=== PATIENT | female | born 1955 | race Caucasian/White ===

== ENCOUNTER 2021-08-12 09:37 | Emergency (ER) | payer MEDICARE, MEDICAID ==
[~2021-08-12] VITALS: Ht 149.9 cm; Wt 71.0 kg
[~2021-08-12 09:37] MED LIST: AMLO5TAB4 PO; HYDR25TA PO; LORA1TAB PO; OMEP20TA2 PO
[2021-08-12] MEDS ORDERED: SODIUM CHLORIDE 0.9% 1,000 ML IV ONE (10:15)
[2021-08-12 11:00] LABS: BASOPHILS % 0.7 % (0.0-2.0); EOSINOPHILS % 3.1 % (0.0-5.0); HEMATOCRIT. 41.8 % (36.0-48.0); HEMOGLOBIN. 14.6 g/dL (12.0-16.0); LYMPHOCYTES % 35.1 % (20.0-50.0); MEAN CORPUSCULAR HEMOGLOBIN 30.9 pg (28.0-32.0); MEAN CORPUSCULAR VOLUME 88.3 fL (81.0-99.0); MEAN PLATELET VOLUME 7.2 fl (7.4-10.4); MONOCYTES % 8.2 % (2.0-8.0); NEUTROPHILS % 52.9 % (40.0-76.0); PLATELET 241 x1000/uL (130-400); RED BLOOD CELL COUNT 4.73 mill/uL (4.2-5.4); RED CELL DISTRIBUTION WIDTH 13.2 % (11.6-14.6)
[2021-08-12 11:06] LABS: CHLORIDE 106 mEq/L (98-107)
[2021-08-12 11:11] LABS: PROTHROMBIN TIME 10.5 sec (9.6-11.0)
[2021-08-12] MEDS ORDERED: ONDANSETRON HCL 4MG/2ML INJ IV ONE (11:15)
[2021-08-12] MEDS ORDERED: MECLIZINE 25MG TABLET PO ONE (11:15)
[2021-08-12 12:47] LABS: CLARITY URINE CLEAR (CLEAR); COLOR URINE YELLOW (YELLOW); KETONES URINE NEGATIVE (NEGATIVE); LEUKOCYTE ESTERASE URINE NEGATIVE (NEGATIVE); NITRITE URINE NEGATIVE (NEGATIVE); OCCULT BLOOD URINE NEGATIVE (NEGATIVE); PROTEIN URINE NEGATIVE (NEGATIVE); SPECIFIC GRAVITY URINE 1.007 (1.005-1.030); UROBILINOGEN URINE 0.2 E.U./dL (0.2-1.0)
[2021-08-12] MEDS ORDERED: ONDA4TAB5 MT (13:46)
[2021-08-12] MEDS ORDERED: DICY20TA11 MT (13:46)
[2021-08-12] MEDS ORDERED: MECL-159 MT (13:46)
[2021-08-12 14:00] VITALS: BP 128/52
[2021-08-12] MEDS ORDERED: IOHEXOL-300 100 ML BOTTLE ONE (14:16)
== END 2021-08-12 14:21 | disposition home or self-care (01) ==
LOC: ER 09:53
DX: R42 Dizziness and giddiness (principal); R19.7 Diarrhea, unspecified; R10.30 Lower abdominal pain, unspecified; J44.9 Chronic obstructive pulmonary disease, unspecified; I10 Essential (primary) hypertension; Z98.890 Other specified postprocedural states
CPT/HCPCS: 36415; 71045; 74177; 80053; 81003; 83690; 85025; 85610; 86850; 86900; 86901; 93005; 96361; 96374; 99285; J2405; J7030; J8597; Q9967

== ENCOUNTER 2021-09-01 20:25 | Emergency (ER) | payer MEDICARE, MEDICAID ==
[~2021-09-01] VITALS: Ht 149.9 cm; Wt 69.0 kg
[~2021-09-01 20:25] MED LIST changes: +DICY20TA11 MT; +MECL-159 MT; +ONDA4TAB5 MT
[2021-09-02] MEDS ORDERED: ACET-2708 MT (00:41)
[2021-09-02 00:53] VITALS: BP 167/83
== END 2021-09-02 00:56 | disposition home or self-care (01) ==
LOC: ER 20:25
DX: H66.91 Otitis media, unspecified, right ear (principal); J44.9 Chronic obstructive pulmonary disease, unspecified; I10 Essential (primary) hypertension; Z90.49 Acquired absence of other specified parts of digestive tract; Z79.899 Other long term (current) drug therapy
CPT/HCPCS: 99281

== ENCOUNTER 2023-10-24 16:20 | Emergency (ER) | payer MEDICARE, MEDICAID ==
[~2023-10-24] VITALS: Ht 162.6 cm; Wt 86.0 kg
[~2023-10-24 16:20] MED LIST changes: +ACET-2708 MT; -DICY20TA11 MT; +DICY20TA2 MT; -MECL-159 MT; +MECL-299 MT; -OMEP20TA2 PO; +OMEP20TA23 PO
[2023-10-24 16:43] VITALS: BP 117/81; PULSE 99; RESP 20; TEMP 99.1; O2SAT 95
[2023-10-24] MEDS ORDERED: AZIT500T8 MT (20:45)
== END 2023-10-24 19:48 | disposition home or self-care (01) ==
LOC: ER 16:20
DX: J44.89 Other specified chronic obstructive pulmonary disease (principal); I10 Essential (primary) hypertension; Z90.49 Acquired absence of other specified parts of digestive tract
CPT/HCPCS: 71045; 93005; 99283